=== PATIENT | female | born 1965 | race Caucasian/White ===

== ENCOUNTER 2018-01-09 20:56 | Emergency (ER) | payer BC ==
[~2018-01-09] VITALS: Ht 165.1 cm; Wt 138.4 kg
[~2018-01-09 20:56] MED LIST: ALBU90OI INH; FLUSAL1005 INH; Flonase 0.05% N16 GM; Prednisone20 MG PO; Ventolin/Prove6.7 GM INH
[2018-01-09] MEDS ORDERED: AZIT500 (21:37)
[2018-01-09] MEDS ORDERED: BLOOD PRESSURE MED (21:38)
[2018-01-09 22:44] LABS: BASOPHILS ABSOLUTE AUTO 0.01 K/mm3 (0.00-0.23); BASOPHILS PERCENT AUTO 0 % (0-2); EOSINOPHILS ABSOLUTE AUTO 0.01 K/mm3 (0.00-0.68); EOSINOPHILS PERCENT AUTO 0 % (0-6); Hematocrit 39.3 % (33.0-51.0); Hemoglobin 12.7 g/dL (11.5-16.0); IMMATURE GRAN ABSOLUTE AUTO 0.06 K/mm3 (0.00-0.10); IMMATURE GRAN PERCENT AUTO 1 % (0-1); LYMPHOCYTES ABSOLUTE AUTO 1.53 K/mm3 (0.84-5.20); LYMPHOCYTES PERCENT AUTO 29 % (21-46); MONOCYTES ABSOLUTE AUTO 0.37 K/mm3 (0.16-1.47); MONOCYTES PERCENT AUTO 7 % (4-13); Mean Corpuscular HGB 29.5 pg (26.0-34.0); Mean Corpuscular HGB Conc 32.3 g/dL (31.5-36.5); Mean Corpuscular Volume 91 fL (80-100); Mean Platelet Volume 10.2 fL (9.1-12.4); NEUTROPHILS ABSOLUTE AUTO 3.39 K/mm3 (1.96-9.15); NEUTROPHILS PERCENT AUTO 63 % (41-73); Platelet Count 235 K/mm3 (150-400); RDW Coefficient Variation 13.7 % (11.7-14.2); RDW Standard Deviation 45.5 fL (35.1-46.3); White Blood Cell Count 5.37 K/mm3 (4.00-11.30)
[2018-01-09 23:02] LABS: Alanine Aminotransfer (ALT/SGP 97 U/L (12-78); Albumin, Blood 3.3 g/dL (3.4-5.0); Albumin/Globulin Ratio 0.8 (0.8-1.8); Alk Phos 117 U/L (50-136); Anion Gap 9 mmol/L (6-16); Aspartate Aminotrans (AST/SGOT 32 U/L (12-37); Bilirubin, Total 0.1 mg/dL (0.1-1.0); Blood Urea Nitrogen 17 mg/dL (8-24); Bun/Creatinine Ratio 26.8 (12.0-20.0); CO2, Blood 27 mmol/L (21-32); Calcium, Blood 8.8 mg/dL (8.5-10.1); Chloride, Blood 101 mmol/L (98-108); Creatinine, Blood 0.63 mg/dL (0.40-1.00); Globulin, Blood 4.4 g/dL (2.2-4.0); Glomerular Filtration Rate >60 (60-); Glucose, Blood 234 mg/dL (70-99); Potassium, Blood 4.2 mmol/L (3.5-5.5); Sodium, Blood 137 mmol/L (136-145); Total Protein, Blood 7.7 g/dL (6.4-8.2); Troponin I <0.015 ng/mL (0.000-0.040)
[2018-01-09 23:20] LABS: Influenza A Negative (NEGATIVE); Influenza B Positive (NEGATIVE)
[2018-01-09] MEDS ORDERED: Mucinex600 MG PO (23:37)
[2018-01-09] MEDS ORDERED: Prednisone20 MG PO (23:37)
[2018-01-09] MEDS ORDERED: Cheratussin AC118 ML PO (23:37)
[2018-01-09] MEDS ORDERED: Duoneb 2.5-0.5 M3 ML INH (23:37)
[2018-07-10] MEDS ORDERED: IBUP800 PO (15:58)
[2018-07-10] MEDS ORDERED: CYCL10 PO (15:58)
[2018-07-10] MEDS ORDERED: LISI20 PO (15:59)
[2018-07-10] MEDS ORDERED: MECL12.5 PO (15:59)
[2018-07-10] MEDS ORDERED: METF500C PO (16:06)
[2018-07-10] MEDS ORDERED: ALBU3IS INH (16:10)
== END 2018-01-09 23:58 | disposition home or self-care (01) ==
LOC: ER 20:56
PROVIDERS: Physician Assistant
DX: J10.1 Influenza due to other identified influenza virus with other respiratory manifestations (principal); J45.901 Unspecified asthma with (acute) exacerbation; Z79.2 Long term (current) use of antibiotics; Z87.891 Personal history of nicotine dependence
CPT/HCPCS: 36415; 71046; 80053; 83880; 84484; 85025; 87804; 94644; 96374; 99284; J2930

== ENCOUNTER → 2018-05-02 | Outpatient (CLI) | payer OTHER ==
[~2018-05-02] MED LIST changes: +AZIT500; +BLOOD PRESSURE MED; +Cheratussin AC118 ML PO; +Duoneb 2.5-0.5 M3 ML INH; +Mucinex600 MG PO
== END | disposition home or self-care (01) ==
LOC: LAB SHORT 13:30 → LAB 13:30
PROVIDERS: Nurse Practitioner Family
DX: Z01.419 Encounter for gynecological examination (general) (routine) without abnormal findings (principal)
CPT/HCPCS: 87624; G0145

== ENCOUNTER 2019-04-30 15:11 | Inpatient (IN) | payer OTHER ==
[~2019-04-30] VITALS: Ht 165.1 cm; Wt 127.0 kg
[~2019-04-30 15:11] MED LIST changes: -BANOPHEN PO; -Nicotine Gum4 MG BC; -TRULICITY1.5 MG/0.5 SC
[2019-04-30] MEDS ORDERED: TRULICITY1.5 MG/0.5 SC (15:49)
[2019-04-30] MEDS ORDERED: BANOPHEN PO (15:50)
[2019-04-30] MEDS ORDERED: Nicotine Gum4 MG BC (16:20)
--- NOTE | 2019-04-30 16:25 | NUR ---
PT ARRIVED TO THE MEDICAL FLOOR A DIRECT ADMIT FROM [facility] VIA WHEELCHAIR A/OX3, PLEASANT AND COOPERATIVE, THE PT IS UP WITH MINIMAL ASSIST, SOB WITH ACTIVITY, THE PT IS ON 4L/MIN O2 AT THIS TIME, THE PT WAS ORIENTED TO THE ROOM LAYOUT AND CALL SYSTEM, CALL LIGHT IN REACH, DR. ZIMMER NOTIFIED OF THE PTS ARRIVAL AND IS IN TO SEE THE PT
[2019-04-30 17:31] LABS: PCO2 Arterial 24.5 mmHg (35-45); PO2 Arterial 72.3 mmHg (80-100); pH Blood Arterial 7.53 (7.35-7.45)
--- NOTE | 2019-04-30 18:44 | NUR ---
PT IS A/OX3, PLEASANT AND COOPERATIVE, THE PT APPEARS TO BE BREATHING EASILY ON 02 @ 3L/MIN AT THIS TIME, THE PT IS SOB WITH ACTIVITY, MINIMAL ASSIST UP. THE PT IS A NEW ADMIT THIS AFTERNOON, THE PT WAS MEDICATED FOR PAIN X1 TODAY, CALL LIGHT IN REACH, BED IN THE LOW POSITION
--- NOTE | 2019-05-01 04:54 | NUR ---
SHIFT SUMMARY PT ALERT AND ORIENTED, HAS OXYGEN ON AT 3L/NC. PT BECOMES DYSPNEIC WITH EXERTION WHEN UP TO BATHROOM. PT CONTINENT OF BLADDER AND BOWEL. PT OFFERS NO C/O'S. SLEPT FAIR. NO ACUTE EVENTS OVER NIGHT, WILL CONTINUE TO MONITOR.
[2019-05-01 05:08] LABS: BASOPHILS ABSOLUTE AUTO 0.02 K/mm3 (0.00-0.23); BASOPHILS PERCENT AUTO 0 % (0-2); EOSINOPHILS PERCENT AUTO 0 % (0-6); Hematocrit 36.8 % (33.0-51.0); IMMATURE GRAN ABSOLUTE AUTO 0.16 K/mm3 (0.00-0.10); IMMATURE GRAN PERCENT AUTO 1 % (0-1); LYMPHOCYTES ABSOLUTE AUTO 0.72 K/mm3 (0.84-5.20); LYMPHOCYTES PERCENT AUTO 6 % (21-46); MONOCYTES ABSOLUTE AUTO 0.23 K/mm3 (0.16-1.47); MONOCYTES PERCENT AUTO 2 % (4-13); Mean Corpuscular HGB 30.7 pg (26.0-34.0); Mean Corpuscular HGB Conc 32.6 g/dL (31.5-36.5); Mean Platelet Volume 10.2 fL (9.1-12.4); NEUTROPHILS ABSOLUTE AUTO 10.69 K/mm3 (1.96-9.15); NEUTROPHILS PERCENT AUTO 90 % (41-73); Platelet Count 237 K/mm3 (150-400); RDW Coefficient Variation 13.6 % (11.7-14.2); RDW Standard Deviation 47.1 fL (35.1-46.3); Red Blood Cell Count 3.91 M/mm3 (3.80-5.20); White Blood Cell Count 11.82 K/mm3 (4.00-11.30)
[2019-05-01 05:28] LABS: Mean Corpuscular Volume 94 fL (80-100)
[2019-05-01 05:46] LABS: Alanine Aminotransfer (ALT/SGP 43 U/L (12-78); Albumin, Blood 3.2 g/dL (3.4-5.0); Albumin/Globulin Ratio 0.8 (0.8-1.8); Alk Phos 77 U/L (50-136); Anion Gap 8 mmol/L (6-16); Aspartate Aminotrans (AST/SGOT 17 U/L (12-37); Bilirubin, Total 0.4 mg/dL (0.1-1.0); Blood Urea Nitrogen 25 mg/dL (8-24); Bun/Creatinine Ratio 32.9 (12.0-20.0); CO2, Blood 22 mmol/L (21-32); Calcium, Blood 8.5 mg/dL (8.5-10.1); Chloride, Blood 106 mmol/L (98-108); Creatinine, Blood 0.76 mg/dL (0.40-1.00); Globulin, Blood 4.1 g/dL (2.2-4.0); Glomerular Filtration Rate >60 (60-); Glucose, Blood 292 mg/dL (70-99); Sodium, Blood 136 mmol/L (136-145); Total Protein, Blood 7.3 g/dL (6.4-8.2)
--- NOTE | 2019-05-01 19:26 | NUR ---
SHIFT SUMMARY- PT C/O HEADACHE THIS AM. MEDS GIVEN PER EMAR. PT REPORTS DYSPNEA UPON EXERTION. 93% ON 3L O2 NC. DENIES N/V. PT REPORTS SOB THIS PM AFTER USING THE RESTROOM. 90-92% ON 3L O2 NC. PT REPORTS HER EYES ITCHING AND SENSITIVITY TO POLLEN. PT'S FAMILY REMEMBER TAKING KIMBROUGH IN ROOM HOME. MEDS GIVEN PER EMAR. BREATHING TX PER EMAR. FAMILY IN TO VISIT TODAY. INDEPENDENT IN THE ROOM. NO OTHER SIGNIFICANT CHANGES THIS SHIFT.
--- NOTE | 2019-05-02 01:11 | NUR ---
RAPID RESPONSE RT RESPONDED TO GEOGRAPHY FACULTY MEMBER CALLED OVERHEAD. SPO2 91% ON 2L NC. RR 36. BS DEC T/O. GAVE NEB VIA MASK. NO CHANGE NOTED. PT REQUESTING OXYGEN MASK. CHANGED TO VENTI MASK 31% FIO2. PT STILL APPEARING ANXIOUS AND SHORT OF BREATH. PLACED ON BIPAP FOR WORK OF BREATHING 11/06 WITH 4L O2 BLEED IN FOR SPO2 92%. PT ESTEFANI BIPAP WELL. MEDIUM FULL FACE MASK USED. PLACED ON CONT OX. BS FEW CRACKLES AND INSP WHZ AUSCULTATED ON LEFT.
--- NOTE | 2019-05-02 01:23 | NUR ---
PHYSIOLOGIST CALLED FOR PT VEW SCORE OF A 5. PT TACHYPNEIC AND HAVING RAPID LABORED BREATHING. PT HAS BEEN BECOMING MORE ANXIOUS DURING THE NIGHT. HOSPITALIST CALLED AND ORDER RECEIVED FOR IV ATIVAN, GIVEN. PT NOW ON A BI-PAP. PT IS NOW RESTING WELL AND LOOKING AND FEELING BETTER. WILL CONTINUE TO MONITOR T/O NIGHT.
--- NOTE | 2019-05-02 05:31 | NUR ---
SHIFT SUMMARY PT HAS RESTED AND SLEPT FAIRLY WELL SINCE BI-PAP ON. HAS BEEN USING BSC WITH SBA. PT DESATS INTO THE 70'S WHEN BI-PAP OFF AND DESATS TO THE MID 80'S WITH EXERTION. WILL CONTINUE TO MONITOR.
--- NOTE | 2019-05-02 12:51 | NUR ---
PT TRANSFERED TO ICU DUE TO RESPIRATIONS STAYING AROUND 30 THIS AM. PT WAS GIVEN ANXIETY MEDICATION PER EMAR, BUT THIS WAS NOT EFFECTIVE. PT WOULD STILL GET ANXIOUS AND START TO WANT TO HYPERVENTILATE, THIS SOFTWARE SUPPORT SPECIALIST WAS ABLE TO REDIRECT AND CALM PT DOWN MULTIPLE TIMES. PT WOULD DESAT IN THE HIGH 80s WHEN THIS WOULD OCCUR. RT TREATMENTS WERE NOT RELIEVING HER SYPMTOMS AND LUNGS SOUND CONTINUE TO WHEEZE AT BASES.DR MYERS CONCERNED AND REQUESTED PT TO BE TRANSFERED TO ICU. AOX4 AND ABLE TO FOLLOW INSTUCTION. REPORT CALLED TO ICU 11 NURSE AND PT TRANSFERED WITH ALL OF HER BELONGINGS.
[2019-05-02 13:05] LABS: PCO2 Arterial 39.6 mmHg (35-45); PO2 Arterial 93.7 mmHg (80-100); pH Blood Arterial 7.41 (7.35-7.45)
--- NOTE | 2019-05-02 14:18 | NUR ---
1245: PT TO ICU 11, CARE ASSUMED, ASSESSMENT COMPLETED. LS COARSE T/O WITH EXPIRATORY WHEEZES IN BILAT BASES, COUGH PRODUCTIVE OF YELLOW SPUTUM. BIPAP PLACED BY RT AT 12/6 WITH 4L O2, SPO2 MID 90'S. HR 100 NSR, OTHER VSS. PT ANXIOUS. 1315: ATIVAN ADMINISTERED PER ORDERS FOR ANXIETY, IV TO LEFT HAND DC'D WITH TIP INTACT FOR INFILTRATION, SHAJI RN AT BEDSIDE FOR POWERGLIDE PLACEMENT. 1415: POWERGLIDE PLACED IN LEFT UPPER ARM, PORTS X2 FLUSH AND DRAW WITHOUT DIFFICULTY. PRECEDEX INFUSION INITAITED AT 0.2MCG/KG/HR. LABS DRAWN, NASAL SWAB OBTAINED, CXR COMPLETED. DR. MARTIN AT BEDSIDE TO DISCUSS PLAN OF CARE WITH PT. PT'S COLOR IS GOOD, VSS, RR 20'S, ANXIETY HAS DECREASED WITH PRECEDEX INFUSION. PTS PARENTS AT BEDSIDE.
--- NOTE | 2019-05-02 15:38 | NUR ---
VISUAL WASTE OF 1MG ATIVAN WITH ANESTHESIOLOGISTJAMES Pennington
[2019-05-02 15:39] LABS: Adenovirus Not Detected (NOT DETECT); Bordetella pertussis Not Detected (NOT DETECT); Chlamydophila pneumoniae Not Detected (NOT DETECT); Coronavirus 229E Not Detected (NOT DETECT); Coronavirus HKU1 Not Detected (NOT DETECT); Coronavirus NL63 Not Detected (NOT DETECT); Coronavirus OC43 Not Detected (NOT DETECT); Human Metapneumovirus Detected (NOT DETECT); Human Rhinovirus/Enterovirus Not Detected (NOT DETECT); Influenza A Not Detected (NOT DETECT); Influenza A/2009-H1 Not Detected (NOT DETECT); Influenza A/H1 Not Detected (NOT DETECT); Influenza A/H3 Not Detected (NOT DETECT); Influenza B Not Detected (NOT DETECT); Mycoplasma pneumoniae Not Detected (NOT DETECT); Parainfluenza Virus 1 Not Detected (NOT DETECT); Parainfluenza Virus 2 Not Detected (NOT DETECT); Parainfluenza Virus 3 Not Detected (NOT DETECT); Parainfluenza Virus 4 Not Detected (NOT DETECT); Respiratory Syncytial Virus Not Detected (NOT DETECT)
[2019-05-02 16:29] LABS: Source, Urine Catheter
[2019-05-02 16:39] LABS: Appearance, Urine Clear (Clear); Bilirubin, Urine Neg (Neg); Blood, Urine Neg (Neg); Color, Urine Yellow (P-Yellow); Glucose Qualitative, Urine Neg (Neg); Ketones, Urine Neg (Neg); Leukocyte Esterase, Urine Neg (Neg); Nitrite, Urine Neg (Neg); Protein, Urine 1+ (Neg); Urobilinogen, Urine NORM (Normal)
--- NOTE | 2019-05-02 17:06 | NUR ---
1500: PT RESTING WITH EYES CLOSED, VSS, SPO2 HIGH 90'S. 1620: STRICKLAND CATHETER INSERTED PER ORDERS, URINE SPECIMEN SENT TO LAB. URINE CLEAR YELLOW. LS DIMINISHED AND COARSE T/O, NO WHEEZES NOTED AT THIS TIME. HR 70'S-80'S NSR. PT DENIES NEEDS OR C/O AT THIS TIME, BIPAP REMAINS ON AT 12/6.
--- NOTE | 2019-05-02 18:41 | NUR ---
1830: PT CONTINUES TO SLEEP, BIPAP ON 11/06, SPO2 94%, RR 32 AND SHALLOW, PT'S COLOR IS GOOD. LS REMAIN COARSE T/O, NO WHEEZES NOTED. HR 70'S NSR. PRECEDEX INFUSING AT 0.2MCG/KG/HR, PT ROUSES EASILY TO VOICE, APPEARS TO BE RESTING COMFORTABLY AT THIS TIME. REPORT TO ONCOMING SHIFT.
--- NOTE | 2019-05-02 22:28 | NUR ---
ASSUMIONG CARE RECEIVED PT REPORT FROM JAMES HOOVER. PT IS ALERT AND ORIENTED. PT IS ON BIPAP AT THIS TIME AT 12/6 WITH 5L O2 BLEED IN. PT SPO2 MAINTAINES IN THE MID 90'S WHILE PATIENT RELAXED. PT WILL DESATURATE INTO THE 89 RANGE WHEN TALKING OR ANXIOUS. PT IS ABLE TO MAINTAIN SPO2 IN THE LOW TO MID 90'S WHILE ON NC AT 5L, THOUGH PT REPORTS SOB WHILE ON NC. PT IS CURRENTLY ON PRECEDEX AT 0.2MCG/KG/HR FOR ANXIETY AT THIS TIME. PT APPEARS TO BE ANXIOUS AT TIMES. PT HR IS IN THE 60-70'S RANGE AT THE TIME OF ASSESSMENT. PT BP IS MAINTAINING IN THE 130'S. PT LUNG SOUNDS ARE COARSE AND DIMINISHED THROUGHOUT WITH OCCASIONAL WHEEZES NOTED. PT HAS STRICKLAND CATH IN PLACE, CURRENTLY PATENT AND DRAINING CLEAR LIGHT YELLOW URINE. PT STRATED ON LR AT 50ML/HR SHORTLY AFTER CARE ASSUMED. ASSUMED CARE OF PT AT THE TIME OF SHIFT REPORT. WILL CONTINUE TO MONITOR PT.
[2019-05-03 04:13] LABS: BASOPHILS ABSOLUTE AUTO 0.04 K/mm3 (0.00-0.23); BASOPHILS PERCENT AUTO 0 % (0-2); EOSINOPHILS ABSOLUTE AUTO 0.04 K/mm3 (0.00-0.68); EOSINOPHILS PERCENT AUTO 0 % (0-6); Hematocrit 39.1 % (33.0-51.0); Hemoglobin 12.5 g/dL (11.5-16.0); Mean Corpuscular HGB 30.3 pg (26.0-34.0); Mean Corpuscular Volume 95 fL (80-100); Mean Platelet Volume 9.9 fL (9.1-12.4); Platelet Count 228 K/mm3 (150-400); RDW Coefficient Variation 13.7 % (11.7-14.2); RDW Standard Deviation 47.8 fL (35.1-46.3); Red Blood Cell Count 4.12 M/mm3 (3.80-5.20); White Blood Cell Count 15.82 K/mm3 (4.00-11.30)
[2019-05-03 04:19] LABS: IMMATURE GRAN ABSOLUTE AUTO 0.26 K/mm3 (0.00-0.10); IMMATURE GRAN PERCENT AUTO 2 % (0-1); LYMPHOCYTES ABSOLUTE AUTO 1.49 K/mm3 (0.84-5.20); LYMPHOCYTES PERCENT AUTO 9 % (21-46); MONOCYTES PERCENT AUTO 3 % (4-13); NEUTROPHILS ABSOLUTE AUTO 13.49 K/mm3 (1.96-9.15); NEUTROPHILS PERCENT AUTO 85 % (41-73)
[2019-05-03 04:29] LABS: Anion Gap 5 mmol/L (6-16); Blood Urea Nitrogen 20 mg/dL (8-24); Bun/Creatinine Ratio 31.4 (12.0-20.0); CO2, Blood 29 mmol/L (21-32); Calcium, Blood 8.4 mg/dL (8.5-10.1); Chloride, Blood 106 mmol/L (98-108); Creatinine, Blood 0.64 mg/dL (0.40-1.00); Glomerular Filtration Rate >60 (60-); Glucose, Blood 201 mg/dL (70-99); Potassium, Blood 4.8 mmol/L (3.5-5.5); Sodium, Blood 140 mmol/L (136-145)
[2019-05-03 04:58] LABS: Base Excess Venous 3.6 mmol/L; Bicarbonate Venous 26.7 mmol/L (24.0-30.0); PCO2 Venous 49.4 mmHg (38-42); PO2 Venous 57.4 mmHg (38-42); pH Blood Venous 7.38 (7.34-7.37)
--- NOTE | 2019-05-03 06:44 | NUR ---
SHIFT SUMAMRY NOTE PT HAS REMAIEND ALERT AND ORIENTED THROUGH THE NIGHT WHILE AWAKE. PT HAS SLEPT THROUGH MOST OF THE NIGHT. PT HAS REMAINED ON BIPAP THROUGHOUT THE NIGHT. BIPAP SETTINGS HAVE REMAIEND UNCHANGED THROUGH THE NIGHT AND REMAIN 12/6 WITH 5L O2 BLEED IN. PT O2 SATURATIONS HAVE MAINTAINED IN THE 90'S THROUGH THE NIGHT. PT HR HAS MAINTAINED IN THE 60-70 RANGE THROUGH THE NIGHT. PT PT HAS REMAINED STABLE. PT REMAINS ON PRECEDEX AT 0.2MCG.KG/HR. PT REMAINS ANXIOUS AT TIMES. PT CONTINUES TO RECEIVE LR AT 50ML/HR. PT HAD APPROX 800ML OF URINE OUTPUT OVERNIGHT. WILL REPORT OFF TO [facility] DAY SHIFT NURSE.
--- NOTE | 2019-05-03 08:02 | NUR ---
0730: CARE ASSUMED, ASSESSMENT COMPLETED. PT RESTING IN BED WITH EYES CLOSED, PRECEDEX AT 0.2MCG/KG/HR, BIPAP AT 12/6, VSS. SPO2 92%, RR 20'S, PT TOLERATING BIPAP WELL, DENIES PAIN, SOB, OR C/O AT THIS TIME.
--- NOTE | 2019-05-03 09:51 | NUR ---
0930: BUFFING WHEEL FORMER MACHINE AT BEDSIDE FOR TESTING. 0945: BIPAP REMOVED FOR AM CARES AND PO MEDICATIONS, O2 4L/NC, SPO2 92-93%. PT PERFORMED AM CARES ON HER OWN, SPO2 MAINTAINING LOW 90'S, NC LEFT ON AT THIS TIME. PRECEDEX CONTINUES AT 0.2MCG/KG/HR, VSS, PT RESTING AND WATCHING TV, DENIES NEEDS, PLEASANT AND COOPERATIVE, ANXIETY LOW AT THIS TIME.
--- NOTE | 2019-05-03 10:24 | NUR ---
ECHOCARDIOGRAM COMPLETE
--- NOTE | 2019-05-03 11:44 | NUR ---
1145: PT TOLERATING NC WELL, SPO2 96%. DR. MARTIN IN TO ASSESS, TRULICITY BROUGHT IN BY PT'S PARENTS, ADMINISTERED PER DR. MARTIN. PT SLIGHTLY ANXIOUS, ABLE TO BE CALMED BY ANSWERING QUESTIONS AND GIVING VERBAL REASSURANCE. ANXIETY IS NOT EFFECTING PT'S VS AT THIS TIME.
--- NOTE | 2019-05-03 13:37 | NUR ---
PT SITTING UP IN BED, TOLERATED CLEAR LIQUID LUNCH WITHOUT DIFFICULTIES, NO DESAT. HR 70'S NSR, SPO2 MID 90'S 4L/NC, PT DENIES PAIN OR C/O AT THIS TIME, ANXIETY MINIMAL. PRECEDEX UNCHANGED.
--- NOTE | 2019-05-03 15:54 | NUR ---
1530: PT SITTING UP IN BED, VISITORS AT BEDSIDE. VSS, SPO2 90-92% 4L/NC. 1615: BED BATH COMPLETED, LINENS CHANGED, PT REPOSITIONED IN BED. VSS, SPO2 MAINTAINED 90-92% DURING BEDBATH ON 4L/NC, HR 80 NSR. 1625: PRECEDEX OFF AT THIS TIME, WILL MONITOR FOR RESPIRATORY STATUS CHANGES, VS, AND ANXIETY LEVELS. PT SITTING UP IN BED USING IPAD, DENIES NEEDS OR C/O.
--- NOTE | 2019-05-03 18:41 | NUR ---
PT REPORTS SHE HAS NOT HAD A BM IN 1 WEEK, BOWEL CARE PROTOCOL INITIATED, MOM ADMINISTERED PER ORDERS. PT DENIES ABDOMINAL PAIN OR DISCOMFORT, BT HYPOACTIVE BUT PRESENT. PT SITTING UP IN BED DRINKING TEA AND TALKING WITH HER MOTHER, DENIES C/O AT THIS TIME. LS REMAIN CONGESTED WITH EXP WHEEZES ON THE LEFT, SPO2 94% ON 4L/NC, HR 70'S NSR, PT DENIES SOB AT REST. PT HAS HAS NO EPISODES OF ANXIETY OR SOB SINCE PRECEDEX HAS BEEN OFF. REPORT TO ONCOMING SHIFT.
--- NOTE | 2019-05-03 19:50 | NUR ---
ASSUMED CARE RECEIVED REPORT FROM KIKO. PT IS ALERT AND ORIENTED; ON 4LNC - REQUESTING TO BE PUT BACK ON BIPAP. PT HAS A STRICKLAND HANGING TO GRAVITY; SCD'S ON BILATERAL CALVES. CURRENT GTTP: NS TKO. PT IS ANXIOUS, AND WILL BE GIVEN A DOSE OF ATIVAN. NO FAMILY/FRIENDS AT BEDSIDE.
--- NOTE | 2019-05-03 21:15 | NUR ---
UPDATE PT PUT ON BIPAP 11/06 AROUND 2014; PT ANXIOUSLY STATED SHE WANTED IT; AND HER SAT'S WERE 87-88. SAT'S CURRENTLY 95% AND SEEMS MORE CALM, SHE IS WATCHING [employer] ON HER IPAD WITH HER EYES CLOSED.
--- NOTE | 2019-05-04 01:01 | NUR ---
UPDATE START OF SHIFT PT WAS EXPRESSING CONCERNS WITH SHORTNESS OF BREATH, AND MENTIONED AT HOME SHE WILL WAKE UP FROM SLEEPING "GASPING FOR AIR". SHE MAY BENEFIT FROM A SLEEP STUDY; SHE PROBABLY HAS SULEMAN, WILL NOTIFY AM NURSE. WHEN SHE IS AWAKE SHE IS ANXIOUS, SHE WAS HAVING TROUBLE SLEEPING AND WAS GIVEN BENADRYL FOR A SLEEP AID, AND SHES BEEN ASLEEP EVER SINCE. SAT'S ARE LOW TO MID 90'S. NO OTHER CHANGES AT THIS TIME.
[2019-05-04 03:38] LABS: BASOPHILS ABSOLUTE AUTO 0.05 K/mm3 (0.00-0.23); BASOPHILS PERCENT AUTO 0 % (0-2); EOSINOPHILS PERCENT AUTO 1 % (0-6); Hematocrit 37.7 % (33.0-51.0); Hemoglobin 12.2 g/dL (11.5-16.0); Mean Corpuscular HGB 30.3 pg (26.0-34.0); Mean Corpuscular HGB Conc 32.4 g/dL (31.5-36.5); Mean Corpuscular Volume 94 fL (80-100); Mean Platelet Volume 10.1 fL (9.1-12.4); Platelet Count 240 K/mm3 (150-400); RDW Coefficient Variation 13.2 % (11.7-14.2); RDW Standard Deviation 45.6 fL (35.1-46.3); Red Blood Cell Count 4.03 M/mm3 (3.80-5.20); White Blood Cell Count 21.25 K/mm3 (4.00-11.30)
[2019-05-04 03:40] LABS: IMMATURE GRAN ABSOLUTE AUTO 0.74 K/mm3 (0.00-0.10); IMMATURE GRAN PERCENT AUTO 4 % (0-1); LYMPHOCYTES ABSOLUTE AUTO 1.69 K/mm3 (0.84-5.20); LYMPHOCYTES PERCENT AUTO 8 % (21-46); MONOCYTES ABSOLUTE AUTO 0.59 K/mm3 (0.16-1.47); MONOCYTES PERCENT AUTO 3 % (4-13); NEUTROPHILS ABSOLUTE AUTO 17.98 K/mm3 (1.96-9.15); NEUTROPHILS PERCENT AUTO 85 % (41-73)
[2019-05-04 03:53] LABS: Anion Gap 4 mmol/L (6-16); Blood Urea Nitrogen 20 mg/dL (8-24); CO2, Blood 30 mmol/L (21-32); Calcium, Blood 8.4 mg/dL (8.5-10.1); Chloride, Blood 106 mmol/L (98-108); Creatinine, Blood 0.56 mg/dL (0.40-1.00); Glomerular Filtration Rate >60 (60-); Glucose, Blood 220 mg/dL (70-99); Potassium, Blood 4.5 mmol/L (3.5-5.5); Sodium, Blood 140 mmol/L (136-145)
[2019-05-04 06:18] LABS: Base Excess Venous 4.1 mmol/L; Bicarbonate Venous 27.5 mmol/L (24.0-30.0); PCO2 Venous 42.4 mmHg (38-42); pH Blood Venous 7.43 (7.34-7.37)
--- NOTE | 2019-05-04 06:26 | NUR ---
SHIFT SUMMARY PT HAS BEEN SLEEPING FOR MAJORITY OF NIGHT. WAS ABLE TO DO 2XCIWA; ONE EARLY ON (SEE INTERVENTION) AND ONE AROUND 0530. CIWA OF 4-5, VERY SLEEPY WHEN AWAKE AND STRUGGLES TO STAY AWAKE - NO LIBRIUM OR ATIVAN WAS GIVEN. PT IS ALERT AND ORIENTED TO SELF, , AND PLACE; BUT IS NOT ORIENTED TO THE TIME. HE STATED FERCHO THE PRESIDENT AT BEGINNING OF SHIFT; AND JUST RECENTLY STATED ROSELINE FERNANDEZ CURRENT PRESIDENT. HE ALSO HAD TO BE TAUGHT SEVERAL TIMES HOW TO TURN THE CHANNEL ON THE TV. PT IS ON 2LNC, AND HAS BEEN SAT'ING 95-100; AND IS IN NO RESPIRATORY DISTRESS. BLOOD PRESSURE IS SOFT, BUT VARIES WITH WHERE THE CUFF IS LOCATED. PT FINISHED THE BANANA BAG OVERNIGHT, AND IS CURRENTLY RECIEVING NS TKO ONLY; OTHER IV IS SALINE LOCKED. NO VISITORS OVER NIGHT. CALL LIGHT WITHIN REACH; BED LOW AND LOCKED.
--- NOTE | 2019-05-04 07:17 | NUR ---
SHIFT SUMMARY PT IS COMPLETELY ALERT AND ORIENTED, BUT CAN BE VERY ANXIOUS WHICH CAN MAKE HER SAT'S DROP TO THE 80'S. SHE WAS FAIRLY CALM ALL NIGHT, CONSIDERING HER BASELINE. WHEN SHE IS AWAKE SHE PREFERS TO BE ON 4L NC AND WHILE ASLEEP SHE TOLERATES 12/6 BIPAP. SEE VS FOR SAT'S THROUGHOUT NIGHT. PT IS COARSE, AND SLIGHTLY WHEEZY ON EXHALATION. SHE HAS BEEN HYPERTENSIVE ALL NIGHT, SEE VS, AND I WAS ABLE TO GET AN ORDER FOR LABETALOL PRN, GIVEN THIS MORNING. PT IN NSR AND HAS HAD STABLE VITALS OTHERWISE. NO BOWEL MOVEMENT, BUT GREAT URINE. ABLE TO CHANGE POSITIONS, BUT COULD USE REMINDERS AND BOOSTS. PT WAS ABLE TO SLEEP FOR APPROX. 5 HOURS. DISCUSSED THE POSSIBILITY OF HER HAVING SULEMAN, AND I NOTIFIED AM NURSE THAT SHE WOULD BENEFIT FROM A SLEEP STUDY AND AN EVALUATION FOR BIPAP AT HOME. PT DID NOT NEED PRECEDEX LAST NIGHT, HOWEVER WAS GIVEN ATIVAN LAST NIGHT (ONE DOSE) AND BENADRYL (WORKED VERY WELL TO HELP HER SLEEP). NO VISITORS OVERNIGHT; CALL LIGHT WAS IN REACH, BED LOW AND LOCKED.
--- NOTE | 2019-05-04 08:08 | NUR ---
AM NOTE. ASSUMED CARE OF PT APROX 1900, PT IS A&Ox4, PLEASENT AND COOPERATIVE WITH CARE. PT WAS ADMITTED DUE TO PNA/HYPOXIA. PT WORE BIPAP ALL NIGHT PER REPORT AND IS CURRENTLY ON 4L NC AT 94%. PT HAS SEVERE ANXIETY R/T BEING SOB OR NEEDLES. TELE INTACT, NSR IN THE 70'S PER MONITOR. PT'S BP 169/85. PT HAS NO EDMEA ON ASSESSMENT. L/S ARE COARSE T/O W/EXP WHEEZES IN THE UPPER LOBES. PT BECOMES SOB WITH ACTIVITY. BT PRESENT AND HYPERACTIVE, ABD IS SOFT AND NONTENDER TO PALP. PT C/O OF GAS PAINS, PT HAS NOT HAD A BM SINCE 04/27, BOWEL CARE STARTED. PT HAS BIPAP AT THE BEDSIDE FOR SLEEP AND PRN. CALL LIGHT IN REACH, BED IS LOCKED AND LOW WILL CONTINUE TO MONITOR.
--- NOTE | 2019-05-04 12:03 | NUR ---
PT UPDATE. REIMBURSEMENT AUDITOR IN THE ROOM, SPOKE WITH PT AND FAMILY ABOUT TRANSFER OUT OF THE ICU TO PCU. PROVIDER ANSWERED QUESTIONS OF THE PT AND FAMILY.
--- NOTE | 2019-05-04 17:19 | NUR ---
PT UPDATE... PT'S FAMILY WAS IN THE ROOM TALKING ABOUT THE PT'S MEDICAL BILLS. PT'S BP AND ANXIETY INCREASED SEVERELY DURING THIS TIME, HER O2 SATS DROPPED INTO THE 80'S. PT WAS PLACED ON BIPAP AT THIS TIME, THIS APPEARED TO HELP ALMOST IMMEADATELY. PT WAS MEDICATED PER EMAR AND GIVEN A ONE TIME DOSE OF LASIX. WILL CONTINUE TO MONITOR.
--- NOTE | 2019-05-04 17:57 | NUR ---
PT TRANSFER. REPORT WAS CALLED TO YUE RAMIREZ IN PCU. PT'S BELONGINGS WERE PACKED AND TAKEN WITH PT.
--- NOTE | 2019-05-04 18:16 | NUR ---
PT RECENTLY TO PCU 4. THIS RN BEEN GIVEN REPORT FROM FINANCE CONSULTANT. PT REQ TO MOVE TO BED IND. PT REQ TO HAVE THIS RN OUT OF ROOM SHE REPORTS NOT HAVING ANY UNDERWEAR ON. THIS RN STEPPED OUT OF ROOM AND FEMALE BUSINESS TRAVEL CONSULTANT' AND RN WERE IN ROOM WHEN PT SAT ON SIDE OF BED SHE WAS IN AND THEN WENT TO PCU BED. PT CONT TO BE ANXIOUS. PT ASSISTED WITH ADL'S PRN. PT IN BED NOW. CALL LIGHT IN REACH.
--- NOTE | 2019-05-05 06:00 | NUR ---
SHIFT SUMMARY.MUCH REASSURANCE AND TEACHING AT START OF SHIFT AND INCLUDING FAMILY . ANXIOUS IN QUESTIONS OVER AND OVER REPEATING. MEDS REVIEWED AND EXPRESSES UNDERSTANDING. DENIES ANY TYPE OF PAIN. 4 L CONT ON NC. AND PLACED ON BIPAP AT ABOUT 2200 AND SAME 4 L BLEED IN.ENC TO TURN COUGH AND DEEP BREATHE . GOOD EFFORT BUT VERY LIMITED FOR MOVING ABOUT IN BED SO MOT TO ESCALATE W/ ANXIETY W/ EXERTIONAL SOB AND AUDIBLE WZ WHEN ENTERS THIS STATE. LIMITED PERIOD W/ THIS TYPE OF PRESENTATION AND CONSTANT REASSURANCE AND SLEPT THE REST OF THE NOC COMPLETELY CALM AND RESTFUL SLEEP/ 4L AND BIPAP. AROUSED FOR VS AND SOME MOVEMENT IN BED AND NO RESP ISSUES. AWAKENED BY 0500 AND NOW A LITTLE MORE TACHEPNEA AND AUDIBLE WZ . CALMING W/ BETTER EFFORT AND RELAXING TO WATCH TV
[2019-05-05 10:04] LABS: Hematocrit 40.5 % (33.0-51.0); Hemoglobin 13.3 g/dL (11.5-16.0); Mean Corpuscular HGB 30.2 pg (26.0-34.0); Mean Corpuscular HGB Conc 32.8 g/dL (31.5-36.5); Mean Corpuscular Volume 92 fL (80-100); Mean Platelet Volume 10.2 fL (9.1-12.4); Platelet Count 294 K/mm3 (150-400); RDW Coefficient Variation 13.3 % (11.7-14.2); RDW Standard Deviation 45.1 fL (35.1-46.3); White Blood Cell Count 25.29 K/mm3 (4.00-11.30)
[2019-05-05 10:35] LABS: BAND PERCENT MAN 3 % (0-8); BASOPHILS PERCENT MAN 0 % (0-2); EOSINOPHILS PERCENT MAN 0 % (0-6); LYMPHOCYTES ABSOLUTE MAN 2.27 K/mm3 (0.84-5.20); LYMPHOCYTES PERCENT MAN 9 % (21-46); METAMYELOCYTE PERCENT MAN 2 % (0-0); MONOCYTES ABSOLUTE MAN 0.25 K/mm3 (0.16-1.47); MONOCYTES PERCENT MAN 1 % (4-13); MYELOCYTE ABSOLUTE MAN 0.75 K/mm3 (0.00-0.00); MYELOCYTE PERCENT MAN 3 % (0-0); NEUTROPHILS ABSOLUTE MAN 21.49 K/mm3 (1.96-9.15); SEG NEUTROPHILS PERCENT MAN 82 % (41-73); TOTAL CELLS COUNTED 100
[2019-05-05 10:38] LABS: Anion Gap 7 mmol/L (6-16); Blood Urea Nitrogen 21 mg/dL (8-24); Bun/Creatinine Ratio 38.9 (12.0-20.0); CO2, Blood 29 mmol/L (21-32); Calcium, Blood 8.7 mg/dL (8.5-10.1); Chloride, Blood 98 mmol/L (98-108); Creatinine, Blood 0.54 mg/dL (0.40-1.00); Glomerular Filtration Rate >60 (60-); Glucose, Blood 300 mg/dL (70-99); Potassium, Blood 3.9 mmol/L (3.5-5.5); Sodium, Blood 134 mmol/L (136-145)
--- NOTE | 2019-05-05 18:32 | NUR ---
SHIFT SUMMARY PT HAS BEEN A&OX3. PT IS STILL BEING DIURESED, CATHETER IN PLACE AND DRAINING APPROPRIATELY. PT HAS BEEN FREE OF ANXIETY FOR THE MOST PART DURING SHIFT, SHE IS ALWAYS CURIOUS ABOUT THE PLAN WELL CARE BEING PROVIDED, SHE DID STATE THIS MORNING THAT WAS TOLD SHE COULD HAVE ATIVAN THIS AFTERNOON IF SHE GETS ANXIOUS, SO FAR PT HAS NOT VERBALIZED NEED FOR ATIVAN. PT AMBULATED WITH SBA AND FWW TO CHAIR. SO FAR STILL NO BM, PT STATED THAT SHE WANTED TO TRY COFFEE BEFORE MILK OF MAGNESIA, SO FAR NO SUCCESS. PT IS STILL ON 4L THROUGH THE OXYMIZER WITH SOME MILD COARSENESS AND WHEEZING. BED IN LOWEST POSITION, CALL LIGHT IN REACH, AND PT EDUCATED TO SAFETY PROTOCOL.
--- NOTE | 2019-05-05 19:30 | NUR ---
ASSUMED CARE PT RESTING IN ROOM COMFORTABLY AT THIS TIME. PER DAY SHIFT PT HAS BEEN ANXIOUS T/O DAY OFF AND ON. PT DIURESING W/ STRICKLAND IN PLACE, DRAINING CLEAR YELLOW URINE. RESP EVEN UNLBAORED ON BIPAP AT THIS TIME W/ SATS >92%. DENIES ANY PAIN. PT REPORTS NO BM SINCE ADMIT, DID ACCEPT COLACE BEFORE BEDTIME. DENIES ANY OTHER NEEDS AT THIS TIME. CALL LIGHT IN REACH. PT CALLS APPROPRIATELY.
[2019-05-06 03:59] LABS: PCO2 Arterial 44.8 mmHg (35-45); PO2 Arterial 89.2 mmHg (80-100); pH Blood Arterial 7.47 (7.35-7.45)
--- NOTE | 2019-05-06 05:37 | NUR ---
SHIFT SUMMARY PT SLEEPING IN ROOM COMFORTABLY AT THIS TIME. NO ACUTE CHANGES IN STATUS T/O NIGHT. PT SLEPT WELL W/ BIPAP ON AND TOLERATED WELL. PT HAD NO COMPLAINTS OF PAIN OR SOB T/O NIGHT. RESP EVEN UNLABORED ON BIPAP W/ SATS >93%. NO OTHER COMPLAINTS AT THIS TIME. CALL LIGHT IN REACH. PT CALLS APPROPRIATELY.
[2019-05-06 10:13] LABS: Anion Gap 9 mmol/L (6-16); Blood Urea Nitrogen 25 mg/dL (8-24); Bun/Creatinine Ratio 41.5 (12.0-20.0); CO2, Blood 29 mmol/L (21-32); Calcium, Blood 8.8 mg/dL (8.5-10.1); Chloride, Blood 94 mmol/L (98-108); Glomerular Filtration Rate >60 (60-); Glucose, Blood 377 mg/dL (70-99); Hematocrit 41.8 % (33.0-51.0); Mean Corpuscular HGB 30.2 pg (26.0-34.0); Mean Corpuscular HGB Conc 33.5 g/dL (31.5-36.5); Mean Corpuscular Volume 90 fL (80-100); Mean Platelet Volume 10.1 fL (9.1-12.4); Platelet Count 320 K/mm3 (150-400); Potassium, Blood 4.1 mmol/L (3.5-5.5); RDW Coefficient Variation 13.5 % (11.7-14.2); RDW Standard Deviation 44.4 fL (35.1-46.3); Red Blood Cell Count 4.64 M/mm3 (3.80-5.20); Sodium, Blood 132 mmol/L (136-145); White Blood Cell Count 26.07 K/mm3 (4.00-11.30)
[2019-05-06 10:48] LABS: BAND PERCENT MAN 2 % (0-8); BASOPHILS ABSOLUTE MAN 0.26 K/mm3 (0.00-0.23); BASOPHILS PERCENT MAN 1 % (0-2); EOSINOPHILS ABSOLUTE MAN 1.82 K/mm3 (0.00-0.68); EOSINOPHILS PERCENT MAN 7 % (0-6); LYMPHOCYTES % ATYPICAL MANUAL 1 % (0-0); LYMPHOCYTES ABSOLUTE MAN 4.43 K/mm3 (0.84-5.20); LYMPHOCYTES PERCENT MAN 16 % (21-46); METAMYELOCYTE ABSOLUTE MAN 0.26 K/mm3 (0.00-0.00); METAMYELOCYTE PERCENT MAN 1 % (0-0); MONOCYTES ABSOLUTE MAN 1.04 K/mm3 (0.16-1.47); MONOCYTES PERCENT MAN 4 % (4-13); NEUTROPHILS ABSOLUTE MAN 18.24 K/mm3 (1.96-9.15); SEG NEUTROPHILS PERCENT MAN 68 % (41-73); TOTAL CELLS COUNTED 100
--- NOTE | 2019-05-06 17:35 | NUR ---
SHIFT SUMMARY PT BLOOD SUGAR INCREASED TO [address] KANG NOTIFIED AT THIS TIME. OT DOSE OF 10 UNITS OF REGULAR INSULIN GIVEN. INSULIN CHANGED TO REGULAR INSTEAD OF LISPRO ORDERED BY DR. KANG. PT CONTINUES TO HAVE ELEVATED BP. DR. KANG AWARE & TO ADJUST LANTUS NEEDED. PT MEDICATED FOR ANXIETY ONCE THIS SHIFT. NO OTHER CHANGES IN ASSESSMENT AT THIS TIME. VSS. WILL CONTINUE TO MONITOR UNTIL TURNOVER IS COMPLETE.
--- NOTE | 2019-05-07 05:40 | NUR ---
SHIFT SUMMARY PT SITTING UPRIGHT IN BED RESTING COMFORTABLY. NO ACUTE CHANGES IN STATUS OVER NIGHT. PT SLEPT WELL AND WORE BIPAP T/O NIGHT. RESP EVEN UNLABORED ON BIPAP W/ SATS >93%. PT DENIED PAIN T/O NIGHT, DENIES OTHER NEEDS. PT REPORTS WANTING TO GET UP AND MOVE MORE TODAY. CALL LIGHT IN REACH. WILL REPORT OFF TO DAY SHIFT RN.
[2019-05-07 09:35] LABS: Hematocrit 39.8 % (33.0-51.0); Hemoglobin 12.9 g/dL (11.5-16.0); Mean Corpuscular HGB 30.3 pg (26.0-34.0); Mean Corpuscular HGB Conc 32.4 g/dL (31.5-36.5); Mean Platelet Volume 10.2 fL (9.1-12.4); Platelet Count 266 K/mm3 (150-400); RDW Coefficient Variation 13.4 % (11.7-14.2); RDW Standard Deviation 45.9 fL (35.1-46.3); Red Blood Cell Count 4.26 M/mm3 (3.80-5.20); White Blood Cell Count 20.61 K/mm3 (4.00-11.30)
[2019-05-07 09:37] LABS: Mean Corpuscular Volume 93 fL (80-100)
[2019-05-07 09:53] LABS: Anion Gap 6 mmol/L (6-16); Blood Urea Nitrogen 23 mg/dL (8-24); Bun/Creatinine Ratio 39.9 (12.0-20.0); CO2, Blood 31 mmol/L (21-32); Calcium, Blood 8.6 mg/dL (8.5-10.1); Chloride, Blood 96 mmol/L (98-108); Creatinine, Blood 0.58 mg/dL (0.40-1.00); Glomerular Filtration Rate >60 (60-); Glucose, Blood 317 mg/dL (70-99); Potassium, Blood 4.5 mmol/L (3.5-5.5); Sodium, Blood 133 mmol/L (136-145)
[2019-05-07 09:58] LABS: BAND PERCENT MAN 1 % (0-8); BASOPHILS PERCENT MAN 0 % (0-2); EOSINOPHILS ABSOLUTE MAN 0.61 K/mm3 (0.00-0.68); EOSINOPHILS PERCENT MAN 3 % (0-6); LYMPHOCYTES ABSOLUTE MAN 4.12 K/mm3 (0.84-5.20); LYMPHOCYTES PERCENT MAN 20 % (21-46); MONOCYTES ABSOLUTE MAN 0.61 K/mm3 (0.16-1.47); MONOCYTES PERCENT MAN 3 % (4-13); NEUTROPHILS ABSOLUTE MAN 15.25 K/mm3 (1.96-9.15); SEG NEUTROPHILS PERCENT MAN 73 % (41-73); TOTAL CELLS COUNTED 100
--- NOTE | 2019-05-07 17:26 | NUR ---
PT AOX4 AND COOPERATIVE OF CARE. CALLS APPROPRIATELY AND DENIES ANY PAIN AT THIS TIME. PT UP IN CHAIR MOST OF THE DAY. PT LOOKS RELAXED AND CALM SHE BREATHS TODAY. ONLY GETS SOB WITH MORE MOVEMENT. PT STATES SHE CAN'T WAIT TO GO HOME. PT REPORTS SHE FEELS MUCH IMPROVED TODAY. WILL CONTINUE TO MONITOR.
--- NOTE | 2019-05-08 06:24 | NUR ---
SHIFT SUMMARY PT SITTING UPRIGHT IN ROOM IN CHAIR. NO ACUTE CHANGES IN STATUS T/O NIGHT. PT SLEPT WELL ON BIPAP T/O NIIGHT AND TOLERATED WELL. PT URINATING EASILY SINCE DC OF MARCO A. RESP EVEN UNLABORED ON 2L NC W/ SATS >92%. PT REPORTS FEELING MUCH BETTER. DENIES PAIN. CALL LIGHT IN REACH.
--- NOTE | 2019-05-08 10:38 | NUR ---
PT QUITE PLEASANT COOP A/O TALKATIVE. STATES SOME PAIN FROM COUGHING RIB/CHEST. 02/08. MED PER EMAR. H/R REG, NO MURMER NOTED. NO TELE PER ORDERS. LUNGS WHEEZY T/O. PT ON 2L O2. RESP EASY, UNLABORED. BT X4 ALST BM 2 DAYS PER PT. VOIDS PER BATHROOM. SBA . BED IN LOW POSITION, CALL LITE IN REACH, CALLS APPROP
--- NOTE | 2019-05-08 12:48 | NUR ---
REPORT CALLED TO KATHIA RN ROOM 354. AIDE TO TRANSPORT
--- NOTE | 2019-05-08 13:32 | NUR ---
PT TRANSFERED. PT IN STABLE CONDITION WITH VSS. PT ORIENTED TO UNIT & GIVEN CALL LIGHT. PT DENIES NEEDS AT THIS TIME. WILL CONTINUE TO MONITOR.
--- NOTE | 2019-05-08 16:39 | NUR ---
SHIFT SUMMARY PT ON RA & SATING IN THE 90S. PT TOLERATING RA WELL. NO OTHER CHANGES IN ASSESSMENT AT THIS TIME. VSS. PT UP IN BED. PRACTICING HER FLUTTER VALUE & IS THERAPY. WILL CONTINUE TO MONITOR UNTIL TURNOVER IS COMPLETE.
[2019-05-09 05:42] LABS: Hematocrit 40.5 % (33.0-51.0); Hemoglobin 13.3 g/dL (11.5-16.0); Mean Corpuscular HGB 30.5 pg (26.0-34.0); Mean Corpuscular HGB Conc 32.8 g/dL (31.5-36.5); Mean Corpuscular Volume 93 fL (80-100); Mean Platelet Volume 9.8 fL (9.1-12.4); Platelet Count 284 K/mm3 (150-400); RDW Coefficient Variation 13.5 % (11.7-14.2); Red Blood Cell Count 4.36 M/mm3 (3.80-5.20); White Blood Cell Count 20.79 K/mm3 (4.00-11.30)
--- NOTE | 2019-05-09 06:02 | NUR ---
SHIFT SUMMARY PT HAS SLEPT WELL DURING THE NIGHT. UP TO BATHROOM PER SELF DURING THE NIGHT, CPAP ON ALL NIGHT. OFFERS NO C/O'S. NO ACUTE EVENTS NOTED DURING THE NIGHT, WILL CONTINUE TO MONITOR.
[2019-05-09 06:04] LABS: BAND PERCENT MAN 1 % (0-8); BASOPHILS PERCENT MAN 0 % (0-2); EOSINOPHILS PERCENT MAN 1 % (0-6); LYMPHOCYTES ABSOLUTE MAN 3.53 K/mm3 (0.84-5.20); LYMPHOCYTES PERCENT MAN 17 % (21-46); METAMYELOCYTE ABSOLUTE MAN 0.62 K/mm3 (0.00-0.00); METAMYELOCYTE PERCENT MAN 3 % (0-0); MONOCYTES ABSOLUTE MAN 0.62 K/mm3 (0.16-1.47); MONOCYTES PERCENT MAN 3 % (4-13); MYELOCYTE PERCENT MAN 1 % (0-0); NEUTROPHILS ABSOLUTE MAN 15.59 K/mm3 (1.96-9.15); SEG NEUTROPHILS PERCENT MAN 74 % (41-73); TOTAL CELLS COUNTED 100
[2019-05-09 06:07] LABS: Alanine Aminotransfer (ALT/SGP 48 U/L (12-78); Albumin, Blood 2.9 g/dL (3.4-5.0); Albumin/Globulin Ratio 0.6 (0.8-1.8); Alk Phos 86 U/L (50-136); Anion Gap 6 mmol/L (6-16); Aspartate Aminotrans (AST/SGOT 11 U/L (12-37); Bilirubin, Total 0.2 mg/dL (0.1-1.0); Blood Urea Nitrogen 26 mg/dL (8-24); Bun/Creatinine Ratio 44.8 (12.0-20.0); CO2, Blood 26 mmol/L (21-32); Chloride, Blood 100 mmol/L (98-108); Creatinine, Blood 0.58 mg/dL (0.40-1.00); Globulin, Blood 4.7 g/dL (2.2-4.0); Glomerular Filtration Rate >60 (60-); Glucose, Blood 282 mg/dL (70-99); Potassium, Blood 5.2 mmol/L (3.5-5.5); Sodium, Blood 132 mmol/L (136-145); Total Protein, Blood 7.6 g/dL (6.4-8.2)
--- NOTE | 2019-05-09 19:16 | NUR ---
NO ACUTE CHANGES THIS SHIFT. PATIENT A/OX4, UP INDEPENDENTLY IN ROOM. VSS THIS SHIFT. ACHS BLOOD SUGARS, COVERAGE NEEDED FOR ALL MEALS. POWERGLIDE TO ASHLEY WNL AND SL. LUNGS WITH WHEEZES THROUGHOUT, ON RA. CALM AND COOPERATIVE WITH CARE, CALLS APPROPRIATELY FOR ASSISTANCE.
--- NOTE | 2019-05-10 05:05 | NUR ---
SHIFT SUMMARY PT SLEPT WELL T/O NIGHT. NO ACUTE CHANGES THIS SHIFT. AOX4. VSS. DENIES PAIN OR NAUSEA. REPORTS DYSPNEA W/ACTIVITY, SPO2 >90% ON RA, E/U RESPIRATIONS, LUNGS HAVE EXPIRATORY WHEEZES T/O, WORE CPAP @HS. CBG 288 LAST NIGHT, PROVIDED INSULIN COVERAGE PER ORDERS. INDEPENDENT IN ROOM, USES CALL LIGHT APPROPRIATELY. I WILL CONTINUE TO MONITOR PT.
--- NOTE | 2019-05-10 17:39 | NUR ---
SUMMARY PT SITTING UP IN BED WATCHING TV, SHE HAS BEEN INDEPENDENT IN THE ROOM, PLEASANT AND COOPERATIVE, UP IN THE HALLS TO WALK FOR A SHORT TIME WELL, PT MED PER EMAR FOR HEADACHE, NO OTHER COMPLAINTS, VSS, NO ACUTE CHANGES, WILL CONT TO MONITOR
--- NOTE | 2019-05-11 06:32 | NUR ---
SHIFT SUMMARY NO ACUTE CHANGES THIS SHIFT. SLEPT WELL T/O NIGHT. AOX4. VSS. DENIES NAUSEA. REPORTS DYSPNEA IS GETTING BETTER & SHE NO LONGER FEELS SOB W/ACTIVITY, SPO2 >90% ON RA, WORE CPAP @HS, LUNGS HAVE EXPIRATORY WHEEZES T/O. REPORTS LOWER BACK PAIN LAST NIGHT & WAS MEDICATED W/FLEXERIL PER ORDERS, STATES IT HELPS HER BACK PAIN. INDEPENDENT IN ROOM. CALL LIGHT IN REACH & I WILL CONTINUE TO MONITOR PT.
[2019-05-11] MEDS ORDERED: ALBU90OI INH (07:51)
[2019-05-11] MEDS ORDERED: FLUTICASONE-SA1 EAC2 INH (07:52)
[2019-05-11] MEDS ORDERED: INSULANPEN SC (07:55)
[2019-05-11] MEDS ORDERED: MONT10T PO (07:57)
[2019-05-11] MEDS ORDERED: PRED10 PO (07:59)
--- NOTE | 2019-05-11 11:39 | NUR ---
DISCHARGE NOTE- PT WAS GIVEN VERBAL AND WRITTEN DISCHARGE INSTRUCTIONS AND ACKNOWLEDGED UNDERSTANDING OF THEM. EXTRA EDUCATION PROVIDED WITH THE PT FOR INSULIN ADMINISTRATION. PT WAS ABLE TO LISTEN AND WATCH AND THEN DEMONSTRATE THE USE OF AN INSULIN PEN. PT STATED SHE UNDERSTANDS HER DISCHARGE INSTRUCTIONS AND WAS PROVIDED WITH CONTACT INFORMATION IF QUESTIONS SHOULD ARRISE TODAY. PT NICK ALONSO WAS DC'D PRIOR TO DISCHARGE.
[2019-05-13 08:10] LABS: QUANTIFERON MITOGEN VALUE 9.76 IU/mL (.); QUANTIFERON NIL VALUE 0.02 IU/mL (.); QUANTIFERON TB1 AG VALUE 0.02 IU/mL (.); QUANTIFERON TB2 AG VALUE 0.01 IU/mL (.); QUANTIFERON-TB GOLD PLUS Negative (Negative)
== END 2019-05-11 09:32 | disposition home or self-care (01) | DRG 193 ==
LOC: MEDS 15:11 → PCU 15:15 → MEDS 15:22 → ICUW 05-02 11:59 → PCU 05-04 17:57 → MEDS 05-08 13:15
PROVIDERS: Family Medicine; Internal Medicine Critical Care Medicine; Internal Medicine Gastroenterology; ADMIT Internal Medicine
PROC: 5A09457 Assistance with Respiratory Ventilation, 24-96 Consecutive Hours, Continuous Positive Airway Pressure (ICD-10-PCS; principal; 2019-04-30)
DX: J12.3 Human metapneumovirus pneumonia (principal); J96.01 Acute respiratory failure with hypoxia; J45.901 Unspecified asthma with (acute) exacerbation; J44.1 Chronic obstructive pulmonary disease with (acute) exacerbation; Z87.891 Personal history of nicotine dependence; I10 Essential (primary) hypertension; E66.9 Obesity, unspecified; F41.9 Anxiety disorder, unspecified; E09.9 Drug or chemical induced diabetes mellitus without complications; T38.0X5A Adverse effect of glucocorticoids and synthetic analogues, initial encounter; G47.33 Obstructive sleep apnea (adult) (pediatric)
CPT/HCPCS: 36415; 36600; 51702; 71045; 71046; 80048; 80053; 82164; 82803; 82947; 83880; 85025; 86480; 87070; 87205; 87486; 87581; 87633; 87798; 93005; 93010; 93306; 94640; 94660; 94760; 94762; 97110; 97116; 97161; 97530; 98960; 99406; C1751; J0360; J0456; J0696; J1650; J1815; J1940; J2060; J2920; J2930; J7050; J7120; J7512; Q0163

== ENCOUNTER → 2019-04-30 | Outpatient (CLI) | payer OTHER ==
[~2019-04-30] MED LIST changes: +ALBU3IS INH; +BANOPHEN PO; +CYCL10 PO; +IBUP800 PO; +LISI20 PO; +MECL12.5 PO; +METF500C PO; +Nicotine Gum4 MG BC; +TRULICITY1.5 MG/0.5 SC
[2019-04-30 10:44] LABS: BASOPHILS ABSOLUTE AUTO 0.03 K/mm3 (0.00-0.23); BASOPHILS PERCENT AUTO 0 % (0-2); EOSINOPHILS ABSOLUTE AUTO 0.03 K/mm3 (0.00-0.68); EOSINOPHILS PERCENT AUTO 0 % (0-6); Hematocrit 36.5 % (33.0-51.0); Hemoglobin 12.5 g/dL (11.5-16.0); IMMATURE GRAN ABSOLUTE AUTO 0.08 K/mm3 (0.00-0.10); IMMATURE GRAN PERCENT AUTO 1 % (0-1); LYMPHOCYTES ABSOLUTE AUTO 1.47 K/mm3 (0.84-5.20); LYMPHOCYTES PERCENT AUTO 14 % (21-46); MONOCYTES PERCENT AUTO 4 % (4-13); Mean Corpuscular HGB 30.9 pg (26.0-34.0); Mean Corpuscular HGB Conc 34.2 g/dL (31.5-36.5); Mean Corpuscular Volume 90 fL (80-100); Mean Platelet Volume 10.1 fL (9.1-12.4); NEUTROPHILS ABSOLUTE AUTO 8.76 K/mm3 (1.96-9.15); NEUTROPHILS PERCENT AUTO 81 % (41-73); Platelet Count 243 K/mm3 (150-400); RDW Coefficient Variation 13.9 % (11.7-14.2); RDW Standard Deviation 45.7 fL (35.1-46.3); Red Blood Cell Count 4.04 M/mm3 (3.80-5.20); White Blood Cell Count 10.77 K/mm3 (4.00-11.30)
[2019-04-30 10:55] LABS: Anion Gap 15 mmol/L (6-16); Blood Urea Nitrogen 15 mg/dL (8-24); Bun/Creatinine Ratio 16.7 (12.0-20.0); CO2, Blood 22 mmol/L (21-32); Calcium, Blood 9.2 mg/dL (8.5-10.1); Chloride, Blood 100 mmol/L (98-108); Glomerular Filtration Rate >60 (60-); Glucose, Blood 189 mg/dL (70-99); Potassium, Blood 4.2 mmol/L (3.5-5.5); Sodium, Blood 137 mmol/L (136-145)
[2019-04-30 10:57] LABS: Troponin I <0.017 ng/mL (0.000-0.040)
== END | disposition home or self-care (01) ==
LOC: LAB EV 10:38 → LAB SHORT 10:38
PROVIDERS: Family Medicine
DX: R06.02 Shortness of breath (principal)
CPT/HCPCS: 80048; 83880; 84484; 85025

== ENCOUNTER → 2019-06-29 | Outpatient (CLI) | payer OTHER ==
[~2019-06-29] MED LIST changes: +BANOPHEN PO; +FLUTICASONE-SA1 EAC2 INH; +INSULANPEN SC; +MONT10T PO; +Nicotine Gum4 MG BC; +PRED10 PO; +TRULICITY1.5 MG/0.5 SC
== END | disposition home or self-care (01) ==
LOC: LAB EV 15:08 → LAB SHORT 15:08
DX: J06.9 Acute upper respiratory infection, unspecified (principal)
CPT/HCPCS: 87081

== ENCOUNTER → 2019-07-15 | Outpatient (CLI) | payer OTHER ==
[2019-07-15 15:17] LABS: BASOPHILS ABSOLUTE AUTO 0.06 K/mm3 (0.00-0.23); BASOPHILS PERCENT AUTO 1 % (0-2); EOSINOPHILS ABSOLUTE AUTO 0.21 K/mm3 (0.00-0.68); EOSINOPHILS PERCENT AUTO 2 % (0-6); Hematocrit 37.1 % (33.0-51.0); Hemoglobin 12.4 g/dL (11.5-16.0); IMMATURE GRAN ABSOLUTE AUTO 0.04 K/mm3 (0.00-0.10); IMMATURE GRAN PERCENT AUTO 0 % (0-1); LYMPHOCYTES ABSOLUTE AUTO 3.93 K/mm3 (0.84-5.20); LYMPHOCYTES PERCENT AUTO 41 % (21-46); MONOCYTES PERCENT AUTO 4 % (4-13); Mean Corpuscular HGB 30.2 pg (26.0-34.0); Mean Corpuscular HGB Conc 33.4 g/dL (31.5-36.5); Mean Corpuscular Volume 91 fL (80-100); NEUTROPHILS ABSOLUTE AUTO 4.92 K/mm3 (1.96-9.15); NEUTROPHILS PERCENT AUTO 52 % (41-73); Platelet Count 288 K/mm3 (150-400); RDW Coefficient Variation 14.1 % (11.7-14.2); RDW Standard Deviation 46.5 fL (35.1-46.3); White Blood Cell Count 9.56 K/mm3 (4.00-11.30)
[2019-07-15 15:21] LABS: Anion Gap 10 mmol/L (6-16); Blood Urea Nitrogen 15 mg/dL (8-24); CO2, Blood 24 mmol/L (21-32); Calcium, Blood 9.5 mg/dL (8.5-10.1); Chloride, Blood 104 mmol/L (98-108); Creatinine, Blood 0.75 mg/dL (0.40-1.00); Glomerular Filtration Rate >60 (60-); Glucose, Blood 110 mg/dL (70-99); Potassium, Blood 4.1 mmol/L (3.5-5.5); Sodium, Blood 138 mmol/L (136-145)
== END | disposition home or self-care (01) ==
LOC: LAB EV 15:12 → LAB SHORT 15:12
PROVIDERS: Physician Assistant Surgical
DX: R22.43 Localized swelling, mass and lump, lower limb, bilateral (principal)
CPT/HCPCS: 80048; 85025

== ENCOUNTER 2020-12-07 10:22 | Day surgery (SDC) | payer BC, OTHER ==
[~2020-12-07] VITALS: Ht 162.6 cm; Wt 131.0 kg
[~2020-12-07 10:22] MED LIST changes: +BANOPHEN25 MG PO; +IBU800 MG PO; +Percocet 5-3251 EACH PO
--- NOTE | 2020-12-07 11:20 | NUR ---
12/07/20 1120 LUIS LIU ONE ATTEMPT BY ASHISH IN RW MISSED ONE SUCCESSFUL IN RH BY ASHISH PT TOW
--- NOTE | 2020-12-07 13:15 | NUR ---
12/07/20 1314 URI COWAN PAIN LEVEL 0/10 AT TIME OF DC, DOCTOR NOTIFIED POST OPP ABOUT PT ABD PAIN AND CONT. MONITORED.
== END 2020-12-07 13:10 | disposition home or self-care (01) ==
LOC: ORSCSDS 10:22
PROVIDERS: Internal Medicine Gastroenterology
PROC: 0DJD8ZZ Inspection of Lower Intestinal Tract, Via Natural or Artificial Opening Endoscopic (ICD-10-PCS; principal; 2020-12-07 11:45)
DX: Z12.11 Encounter for screening for malignant neoplasm of colon (principal); Z86.010 Personal history of colon polyps; K63.5 Polyp of colon; K64.1 Second degree hemorrhoids; I10 Essential (primary) hypertension; E11.9 Type 2 diabetes mellitus without complications; J44.9 Chronic obstructive pulmonary disease, unspecified; Z87.891 Personal history of nicotine dependence; J45.909 Unspecified asthma, uncomplicated; E66.01 Morbid (severe) obesity due to excess calories; Z68.42 Body mass index [BMI] 45.0-49.9, adult; Z79.84 Long term (current) use of oral hypoglycemic drugs; Z79.899 Other long term (current) drug therapy
CPT/HCPCS: 82947; J2250; J2704; J7120

== ENCOUNTER → 2022-03-29 | Outpatient (CLI) | payer BC, OTHER | END | disposition home or self-care (01) | LOC: LAB SHORT 13:25 | DX: E11.8 Type 2 diabetes mellitus with unspecified complications (principal) | CPT/HCPCS: 83036 ==

== ENCOUNTER → 2023-11-27 | Outpatient (CLI) | payer BC | LOC: LAB SHORT 08:43 → LAB 08:43 | DX: N84.1 Polyp of cervix uteri (principal) | CPT/HCPCS: 88305 ==

== ENCOUNTER → 2023-11-27 | Outpatient (CLI) | payer BC ==
[2023-12-05 07:22] LABS: HPV GENOTYPE 16 Not Detected; HPV GENOTYPE 18 Not Detected; HPV HIGH RISK Not Detected; HPV SOURCE Vaginal
== END ==
LOC: LAB 15:19 → LAB SHORT 15:19
PROVIDERS: Obstetrics & Gynecology
DX: Z01.419 Encounter for gynecological examination (general) (routine) without abnormal findings (principal)
CPT/HCPCS: 87624; G0123

== ENCOUNTER → 2025-09-02 | Outpatient (CLI) | payer BC ==
[2025-09-02 13:00] LABS: BASOPHILS ABSOLUTE AUTO 0.05 K/mm3 (0.00-0.23); BASOPHILS PERCENT AUTO 1 % (0-2); EOSINOPHILS ABSOLUTE AUTO 0.28 K/mm3 (0.00-0.68); EOSINOPHILS PERCENT AUTO 3 % (0-6); Hematocrit 37.2 % (33.0-51.0); Hemoglobin 12.8 g/dL (11.5-16.0); IMMATURE GRAN ABSOLUTE AUTO 0.04 K/mm3 (0.00-0.10); IMMATURE GRAN PERCENT AUTO 1 % (0-1); LYMPHOCYTES ABSOLUTE AUTO 2.69 K/mm3 (0.84-5.20); LYMPHOCYTES PERCENT AUTO 31 % (21-46); MONOCYTES ABSOLUTE AUTO 0.39 K/mm3 (0.16-1.47); MONOCYTES PERCENT AUTO 5 % (4-13); Mean Corpuscular HGB Conc 34.4 g/dL (31.5-36.5); Mean Corpuscular Volume 89 fL (80-100); NEUTROPHILS ABSOLUTE AUTO 5.20 K/mm3 (1.96-9.15); NEUTROPHILS PERCENT AUTO 60 % (41-73); NRBC ABSOLUTE 0.00 K/mm3 (0.00-0.02); NRBC Auto 0.0 /100 WBC (0.0-0.2); Platelet Count 239 K/mm3 (150-400); RDW Coefficient Variation 13.1 % (11.7-14.2); RDW Standard Deviation 42.4 fL (35.1-46.3)
[2025-09-02 13:26] LABS: Alanine Aminotransfer (ALT/SGP 26.0 U/L (12-78); Albumin, Blood 3.4 g/dL (3.4-5.0); Albumin/Globulin Ratio 1.0 (0.8-1.8); Anion Gap 13.0 mmol/L (3-11); Aspartate Aminotrans (AST/SGOT 14.0 U/L (12-37); Bilirubin, Total 0.3 mg/dL (0.1-1.0); Blood Urea Nitrogen 10.0 mg/dL (8-24); CO2, Blood 26.0 mmol/L (21-32); Calcium, Blood 8.7 mg/dL (8.5-10.1); Chloride, Blood 111.0 mmol/L (98-108); Creatinine, Blood 0.75 mg/dL (0.40-1.00); Globulin, Blood 3.4 g/dL (2.2-4.0); Glucose, Blood 164.0 mg/dL (70-99); Magnesium, Blood 1.8 mg/dL (1.6-2.4); Potassium, Blood 4.0 mmol/L (3.5-5.5); Sodium, Blood 146.0 mmol/L (136-145); Thyroid Stimulating Hormone 0.774 uIU/mL (0.360-4.800); Total Protein, Blood 6.8 g/dL (6.4-8.2)
== END ==
LOC: LAB 12:56 → LAB SHORT 12:56
PROVIDERS: Chiropractor
DX: R11.2 Nausea with vomiting, unspecified (principal); R53.83 Other fatigue
CPT/HCPCS: 80053; 83735; 84443; 85025